=== PATIENT | male | born 1985 | race Native Hawaiian/Other Pacific Islander ===

== ENCOUNTER → 2019-07-09 | Emergency (ER) | payer MEDICAID, OTHER ==
[~2019-07-09] VITALS: Ht 208.3 cm; Wt 124.7 kg
[2019-07-09 15:39] VITALS: BP 107/70
== END | disposition home or self-care (01) ==
LOC: EDBD 15:28 → ER 15:28
DX: M79.662 Pain in left lower leg (principal); Z53.21 Procedure and treatment not carried out due to patient leaving prior to being seen by health care provider